=== PATIENT | male | born 1960 | race Caucasian/White ===

== ENCOUNTER 2021-04-14 15:04 | Emergency (ER) | payer OTHER ==
[~2021-04-14] VITALS: Ht 175.3 cm; Wt 123.6 kg
[~2021-04-14 15:04] MED LIST: CIPROFLOXACIN500 M1 PO; FLOMAX PO; PERCOCET 5-3251 EACH PO
[2021-04-14 15:18] LABS: ABSOLUTE BASOPHILS 0.2 thou/uL (0.0-0.2); ABSOLUTE EOSINOPHILS 0.2 thou/uL (0.0-0.7); ABSOLUTE LYMPHOCYTES 3.9 thou/uL (0.8-5.3); ABSOLUTE MONOCYTES 0.8 thou/uL (0.0-1.2); ABSOLUTE NEUTROPHILS 7.4 thou/uL (1.6-8.1); BASOPHILS 1.4 %; EOSINOPHILS 1.8 %; HEMOGLOBIN 15.3 gm/dL (14.0-18.0); LYMPHOCYTES 30.9 %; MCH 30.9 pg (26.0-34.0); MCHC 35.5 g/dL (28.0-37.0); MCV 87.2 fL (80.0-100.0); MONOCYTES 6.3 %; MPV 8.4 fl. (7.2-11.1); NUCLEATED RBCS 0 /100WBC; PLATELET COUNT* 310 thou/uL (150-400); POLYS 59.6 %; RBC 4.94 mil/uL (4.50-6.00); RDW-CV 13.6 % (10.5-14.5); WBC 12.5 thou/uL (4.0-11.0)
[2021-04-14 15:28] LABS: CALCIUM 9.4 mg/dL (8.5-10.1); CREATININE 1.2 mg/dL (0.6-1.3); POTASSIUM 4.6 mmol/L (3.5-5.1)
[2021-04-14] MEDS ORDERED: METFORMIN HCL500 M3 PO (15:30)
[2021-04-14] MEDS ORDERED: GLIBURIDE (15:31)
[2021-04-14] MEDS ORDERED: NORVASC10 MG PO (15:34)
[2021-04-14] MEDS ORDERED: HYDROCHLOROTHIA25 M1 PO (15:35)
[2021-04-14] MEDS ORDERED: FISH OIL 1,0001 EAC9 PO (15:35)
[2021-04-14] MEDS ORDERED: SUPER THERAVIT1 EACH PO (15:35)
[2021-04-14] MEDS ORDERED: CHILDREN'S ASPI81 M1 PO (15:36)
[2021-04-14] MEDS ORDERED: VITAMIN C100 MG PO (15:36)
[2021-04-14 15:39] LABS: ALBUMIN 3.4 g/dL (3.4-5.0); CK-MB MASS 1.2 ng/mL (<0.5-3.6); MAGNESIUM 1.9 mg/dL (1.8-2.4); TOTAL BILIRUBIN 0.4 mg/dL (<0.1-1.0); TOTAL PROTEIN 7.6 g/dL (6.4-8.2)
--- NOTE | 2021-04-14 16:10 | EKG ---
[place] [address] ELECTROCARDIOGRAM REPORT Name: NARENDRA CHRISTIANSON Room: [facility]#: [id number] Admission: 04/14/21 Attend Phys: Discharge: Date of : 58 Date of Service: 04/14/21 1514 Report #: [id number] THIS REPORT FOR: //name// [facility] ED Test Date: 2021-04-14 Test Time: 15:14:38 Pat Name: NARENDRA CHRISTIANSON Department: Room: Gender: [employer]: : 1960 Requested By: Chace Hernandez Order Number: [id number] MD: Ryan Coronado Measurements Intervals Reading Rate: 88 P: 68 SC: 183 QRS: 27 QRSD: 98 T: 37 QT: 372 QTc: 450 Interpretive Statements Sinus rhythm Borderline low voltage, extremity leads No previous ECG available for comparison Electronically Signed On 04-14-2021 16:10:02 CDT by Ryan Coronado [email or web address] <ELECTRONICALLY SIGNED> By: Ryan Coronado MD, [facility] 04/14/21 1610 1514 151 Ryan Coronado MD, FACC /EPI
[2021-04-14 17:37] VITALS: BP 125/75
== END 2021-04-14 17:38 | disposition home or self-care (01) ==
LOC: M.ERS 15:04
PROVIDERS: Family Medicine
DX: E11.65 Type 2 diabetes mellitus with hyperglycemia (principal); R20.2 Paresthesia of skin; Z87.442 Personal history of urinary calculi